=== PATIENT | female | born 1995 ===

== ENCOUNTER 2016-06-23 09:12 | Emergency (ER) | payer SELFPAY ==
[2016-06-23 09:18] VITALS: TEMP 98.6; O2SAT 99; BMI 28.3
--- NOTE | 2016-06-23 09:35 | ED PDOC ---
Arrival/HPI - General Chief Complaint: Female Genitourinary Time Seen by Provider: 06/23/16 09:23 Historian: Patient - History of Present Illness Narrative History of Present Illness (Text): 06/23/16 09:35 20-year-old female presents today with a three-day history of dysuria and urinary frequency. Patient states she is having burning with urination. Patient states she feels like she is only urinating a little bit. Patient states the burning sensation is at the end of the stream. She denies abdominal pain. Denies back pain. Denies fevers or chills. Patient states she has a history of frequent urinary tract infections. Patient states these symptoms are similar to her previous urinary tract infections. Patient denies chest pain or shortness of breath. Denies vaginal bleeding or discharge. Denies . No other complaints Past Medical History - Provider Review Nursing Documentation Reviewed: Yes - Travel History Have you recently traveled outside [place] w/in the past 3 mons?: No - Tetanus Immunization Tetanus Immunization: Unknown - Psychiatric Hx Substance Use: No Family/Social History - Physician Review Nursing Documentation Reviewed: Yes Family/Social History: Unknown Family HX Smoking Status: Never Smoked Hx Alcohol Use: No Hx Substance Use: No Allergies/Home Meds Allergies/Adverse Reactions: Allergies No Known Allergies Allergy (Verified 06/23/16 09:18) Review of Systems - Review of Systems Constitutional: absent: Fatigue, Fevers Respiratory: absent: SOB, Cough Cardiovascular: absent: Chest Pain, Palpitations Gastrointestinal: absent: Abdominal Pain, Diarrhea, Nausea, Vomiting Genitourinary Female: Dysuria, Frequency. absent: Hematuria, Urine Output Changes, Vaginal Bleeding, Vaginal Discharge Musculoskeletal: absent: Arthralgias, Back Pain, Neck Pain Skin: absent: Rash, Pruritis Neurological: absent: Headache, Dizziness Psychiatric: absent: Anxiety, Depression Physical Exam Vital Signs Reviewed: Yes Vital Signs Temp Pulse Resp BP Pulse Ox 06/23/16 09:17 98.6 F 87 15 109/74 99 Temperature: Afebrile Blood Pressure: Normal Pulse: Regular Respiratory Rate: Normal Appearance: Positive for: Well-Appearing, Non-Toxic, Comfortable Pain Distress: None Mental Status: Positive for: Alert and Oriented X 3 - Systems Exam Head: Present: Atraumatic Respiratory/Chest: Present: Clear to Auscultation Cardiovascular: Present: Regular Rate and Rhythm Abdomen: No: Tenderness, Distention, Peritoneal Signs, Guarding Back: Present: Normal Inspection. No: CVA Tenderness Skin: Present: Warm, Dry, Normal Color. No: Rashes Psychiatric: Present: Alert, Oriented x 3 Medical Decision Making ED Course and Treatment: 06/23/16 09:37 Patient is nontoxic well-appearing in no distress with stable vital signs Pyridium, nitrofurantoin Urinalysis: tntc wbcs, + leukocytes Urine culture: pending advised follow up with the primary care physician within the next 2 days. advised immediate return if symptoms worsen,persist or if new symptoms develop. Patient verbalizes understanding of discharge instructions and need for immediate followup. all aspects of this case were discussed the attending of record. Impression: Urinary tract infection Motrin every 6 hours as needed for pain Nitrofurantoin 1 tablet twice daily 10 days Pyridium one tablet twice daily x3 days Followup with primary care physician within the next 2 days Follow up with the urologist for the next 2 days Return if symptoms worsen persist or if new symptoms develop - Lab Interpretations Lab Results: Lab Results 06/23/16 09:30: Urine Color Yellow, Urine Appearance Turbid, Urine pH 6.0, Ur Specific [place] >= 1.030, Urine Protein 100 H, Urine Glucose (UA) Negative, Urine Ketones Negative, Urine Blood Large H, Urine Nitrate Negative, Urine Bilirubin Negative, Urine Urobilinogen 1.0 H, Ur Leukocyte Esterase Moderate H, Urine RBC 5 - 10, Urine WBC Tntc, Urine Bacteria Few, Urine HCG, Qual Negative Disposition/Present on Arrival - Present on Arrival Any Indicators Present on Arrival: No History of DVT/PE: No History of Uncontrolled Diabetes: No Urinary Catheter: No History of Decub. Ulcer: No History Surgical Site Infection Following: None - Disposition Have Diagnosis and Disposition been Completed?: Yes Diagnosis: Urinary tract infection Disposition: HOME/ ROUTINE Disposition Time: 09:35 Patient Plan: Discharge Patient Problems: Current Active Problems Problem Status Diagnosed Urinary tract infection Acute Condition: GOOD Discharge Instructions (ExitCare): Urinary Tract Infection in Women (ED) Additional Instructions: Motrin every 6 hours as needed for pain Nitrofurantoin 1 tablet twice daily 10 days Pyridium one tablet twice daily x3 days Followup with primary care physician within the next 2 days Follow up with the urologist for the next 2 days Return if symptoms worsen persist or if new symptoms develop Prescriptions: Nitrofurantoin Macrocrystals [Macrobid] 100 mg PO BID #20 cap Ibuprofen [Motrin] 600 mg PO Q6H PRN #20 tab PRN Reason: pain/fever reduction Phenazopyridine [Phenazopyridine HCl] 200 mg PO BID #6 tab Referrals: Alin Campuzano MD [Staff Provider] - [place] up with [place] [facility] [place] - [facility]] - Follow up with primary Forms: WORK NOTE
[2016-06-23 10:16] LABS: URINE BILIRUBIN NEGATIVE (NEGATIVE); URINE BLOOD LARGE (NEGATIVE); URINE GLUCOSE (UA) NEGATIVE (NEGATIVE); URINE KETONE NEGATIVE (NEGATIVE); URINE LEUKOCYTE ESTERASE MODERATE Leu/uL (NEGATIVE); URINE PROTEIN 100 mg/dL (<30 mg/dL)
[2016-06-23 10:19] LABS: URINE APPEARANCE TURBID (CLEAR); URINE COLOR YELLOW (YELLOW)
[2016-06-23 10:21] LABS: URINE BACTERIA FEW (NEG); URINE WBC TNTC /hpf (0-6)
[2016-06-23 10:57] VITALS: BP 112/72; PULSE 80; RESP 17
== END 2016-06-23 10:56 | disposition home or self-care (01) ==
LOC: ED 09:12
DX: N39.0 Urinary tract infection, site not specified (principal)